=== PATIENT | male | born 1965 | race Caucasian/White ===

== ENCOUNTER 2017-04-19 13:47 | Day surgery (SDC) | payer OTHER ==
[~2017-04-19] VITALS: Ht 172.7 cm; Wt 72.3 kg
[~2017-04-19 13:47] MED LIST: LEVO500T72 PO
[2017-04-19 14:34] VITALS: Ht 172.7 cm; Wt 72.3 kg
[2017-04-19] MEDS ORDERED: CELEBREX (14:40)
[2017-04-19] MEDS ORDERED: LEFLUNOMIDE (14:40)
[2017-04-19] MEDS ORDERED: TERAZOSIN (14:40)
[2017-04-19 15:39] VITALS: BP 124/80; PULSE 65; RESP 10
--- NOTE | 2017-04-19 16:14 | OPPN ---
Date/Time of Note Date/Time of Note DATE: 04/19/17 TIME: 16:12 Operative Report Preoperative Diagnosis Abdominal pain and positive occult blood in stool Postoperative Diagnosis Gastritis Internal hemorrhoids Operation/Procedure Performed Esophagogastroduodenoscopy and biopsy Colonoscopy Anesthesia: other Estimated blood loss: none Specimens Gastric mucosal biopsy for H. pylori test Complications: None ALYSSA FLOR MD Apr 19, 2017 16:14
[2017-04-19] MEDS ORDERED: FENTAnyl 50 MCG/ML VIAL ONE (16:33)
[2017-04-19] MEDS ORDERED: MIDAZOLAM 1 MG/ML 2 ML INJ ONE (16:33)
[2017-04-19 16:39] VITALS: BP 121/74; PULSE 68
--- NOTE | 2017-04-19 20:31 | GILP ---
DATE OF PROCEDURE: 04/19/2017 PROCEDURE PERFORMED: 1. Esophagogastroduodenoscopy and biopsy. 2. Colonoscopy. SURGEON: Gwen Tolliver MD. PREOPERATIVE DIAGNOSIS: 1. Positive occult blood in stool. 2. Abdominal pain. POSTOPERATIVE DIAGNOSES: 1. Gastritis with erosions and biopsy was positive for Helicobacter pylori infection. Colonoscopy all the way to the cecum. 2. Internal hemorrhoids. 3. No colon neoplasm was identified. INDICATION: The patient is a 51-year-old male patient, who was noted to have positive occult blood in stool. The patient also had upper abdominal pain not responding to therapy. The patient was scheduled for endoscopy and colonoscopy for further evaluation. The procedures and possible complications were well explained to the patient. He understood and consented to the procedure. DESCRIPTION OF PROCEDURE: Under influence of fentanyl and Versed, the gastroscope was carefully introduced into the esophagus, and under direct vision it was advanced to the stomach, into the pylorus, into the duodenal bulb, and descending duodenum. FINDINGS: Esophagus. Mucosa was normal. Stomach. Patient had gastritis with erosions. Biopsy was positive for Helicobacter pylori infection. Duodenum was normal. The colonoscope was carefully introduced in the rectum. Under direct vision it was advanced all the way to the cecum. FINDINGS: The patient was noted to have internal hemorrhoids. No colitis or neoplasm was identified. He tolerated the procedures very well. There was no complication from the procedures. At the end of procedures he was awake with stable vital signs and he was discharged home in the care of his family. IMPRESSION: Please see postop diagnoses. PLAN: 1. Zantac 300 mg p.o. b.i.d. for 14 days. 2. Doxycycline 100 mg p.o. b.i.d. for 14 days. 3. Flagyl 500 mg p.o. b.i.d. for 14 days. 4. Pepto-Bismol 2 tablets p.o. q.i.d. for 14 days. Screening colonoscopy in 10 years. Dictated By: MD SILKE Arroyo/diane/kierra /Document#: [id number]
== END 2017-04-19 17:54 | disposition home or self-care (01) ==
LOC: GIL 13:47
PROVIDERS: ATTEND Internal Medicine Gastroenterology
DX: K29.70 Gastritis, unspecified, without bleeding (principal); B96.81 Helicobacter pylori [H. pylori] as the cause of diseases classified elsewhere; K64.8 Other hemorrhoids; R19.5 Other fecal abnormalities
CPT/HCPCS: 43239; 45378; 87081; J2250; J3010; Z7610

== ENCOUNTER 2017-07-23 18:56 | Emergency (ER) | payer OTHER ==
[~2017-07-23 18:56] MED LIST changes: +CELEBREX; +LEFLUNOMIDE; -LEVO500T72 PO; +TERAZOSIN
[2017-07-23] MEDS ORDERED: ACETAMINOPHEN 500 MG TAB ONE (21:51)
--- NOTE | 2017-07-24 08:07 | RADRPT ---
PROCEDURE: Chest. CLINICAL INDICATION: Cough. TECHNIQUE: Single frontal view of the chest was obtained. COMPARISON: None. FINDINGS: The cardiac silhouette is within normal limits. The aortic arch is unremarkable. There is no focal consolidation, vascular congestion or pleural effusion. There is no pneumothorax. IMPRESSION: No evidence for active cardiopulmonary disease. .Royal Vaca MD, Date Time Electronically viewed and signed by .Royal Vaca MD, MD on 07/23/2017 22:22 .T/
--- NOTE | 2017-08-21 14:38 | ERD ---
ER Documentation Chief Complaint Chief Complaint HPI Patient is a 51-year-old male who is complaining of cough and fever for the past 3 weeks. Is already seen his primary care doctor is completed antibiotics within the last few days. He has been taking Tylenol Motrin. No nausea or vomiting or diarrhea. ROS All systems reviewed and are negative except as per history of present illness. Medications Home Meds Reported Medications [Leflunomide] No Conflict Check 04/19/17 [Terazosin] No Conflict Check 04/19/17 [Celebrex] No Conflict Check 04/19/17 Allergies Allergies: Coded Allergies: naproxen (Verified Allergy, Intermediate, RASH, 08/29/16) PMhx/Soc History of Surgery: No Anesthesia Reaction: No Hx Neurological Disorder: No Hx Respiratory Disorders: No Hx Cardiac Disorders: No Hx Psychiatric Problems: No Hx Miscellaneous Medical Probl: No Hx Alcohol Use: No Hx Substance Use: No Hx Tobacco Use: No FmHx Family History: No diabetes Physical Exam Physical Exam INITIAL VITAL SIGNS: Reviewed by me GENERAL: Awake, alert and oriented x 4, well appearing, nontoxic, speaking in full sentences. No acute distress HEAD: Atraumatic NECK: Supple. No masses. Full range of motion. No meningismus. No midline tenderness. THROAT: No tonilar erythema or edema. No exudates. Uvula midline. No kissing tonsils. RESPIRATORY: Clear to auscultation bilaterally. Symmetric chest wall rise. No wheezing or rales. No accessory muscle use. CV: Regular rate and rhythm. No murmurs, rubs, or gallops. ABDOMEN: Soft, non-distended. Nontender. Negative [place]. Negative McBurneys point tenderness. No CVA tenderness bilaterally. No guarding. No rebound. Results 24 hrs Current Medications Medications (Trade) Dose Ordered Sig/Darryn Route PRN Reason Start Time Stop Time Status Last Admin Dose Admin Acetaminophen (Tylenol Tab) 500 mg STK-MED ONCE .ROUTE 07/23/17 21:51 07/24/17 15:41 DC Procedures/MDM Patient presents with cough and congestion and fever. He does have a temperature 102 otherwise he is well-appearing in no distress. He was given Tylenol. Chest x-ray was negative. Patient counseled regarding my diagnostic impression and care plan. Prior to discharge all questions answered. Pt agrees with treatment plan and understands strict return precautions. Pt is instructed to follow up with primary care provider within 24-48 hours. Precautionary instructions provided including instructions to return to the ER if not improving or for any worsening or changing symptoms or concerns. Departure Diagnosis: Primary Impression: Bronchitis Condition: Stable JOHN BRIAN PA-C Aug 21, 2017 14:38
== END 2017-07-24 13:19 | disposition home or self-care (01) ==
LOC: FTE 18:56 → E/R 07-24 13:19
DX: J20.9 Acute bronchitis, unspecified (principal)
CPT/HCPCS: 71010; Z7610